=== PATIENT | male | born 1955 | race Caucasian/White ===

== ENCOUNTER 2017-10-04 13:13 | Emergency (ER) | payer OTHER ==
[2017-10-04] MEDS ORDERED: TDAP VACCINE 0.5 ML SUS IM ONE ×2 (13:52→14:05)
[2017-10-04 14:10] LABS: BASOPHILS % (AUTO) 1 % (0-3); EOSINOPHILS % (AUTO) 4 % (0-9); HEMATOCRIT 40 % (39-53); MEAN CORPUSCULAR HGB CONC 37.4 gm/dl (32.0-36.0); MEAN CORPUSCULAR VOLUME 82 fL (80-100); MONOCYTES % (AUTO) 8.8 % (0-12); NEUTROPHILS % (AUTO) 68.6 % (37-80)
[2017-10-04 14:14] LABS: ALBUMIN 3.7 gm/dl (3.4-5.0); CALCIUM 9.1 mg/dl (8.5-10.1); POTASSIUM 3.1 mMol/L (3.5-5.1)
[2017-10-04 14:23] LABS: NORMAL RBCS PRESENT
[2017-10-04 16:10] VITALS: BP 127/93; PULSE 89; O2SAT 93
== END 2017-10-04 16:05 | disposition home or self-care (01) | DRG 90 ==
LOC: ED 13:13
DX: S06.0X1A Concussion with loss of consciousness of 30 minutes or less, initial encounter (principal); M79.641 Pain in right hand; S80.211A Abrasion, right knee, initial encounter; S01.111A Laceration without foreign body of right eyelid and periocular area, initial encounter
CPT/HCPCS: 36415; 70450; 73130; 80053; 85025; 90471; 90715; 99284; 99285; A6446